=== PATIENT | male | born 1960 | race Caucasian/White ===

== ENCOUNTER 2016-12-18 08:04 | Day surgery (SDC) | payer MEDICARE, OTHER ==
[~2016-12-18 08:04] MED LIST: LACTATED RINGERS 1,000 ML IV SCH
[2016-12-18] MEDS ORDERED: PROPOFOL 20 ML IV ONE (08:40)
[2016-12-18] MEDS ORDERED: KETAMINE HCL UD SYRINGE 100 MG/2 ML IV ONE (08:41)
--- NOTE | 2016-12-25 14:20 | SURGPATH ---
[facility] [address] [place] [id number] Patient Name: ARTUR JANE MR#: [id number] : 1960 Gender: M Specimen #: [id number] Collected: 12/18/2016 Received: 12/19/2016 Reported: 12/22/2016 Submitting Phys: GUI NÚÑEZ Copy To Phys: [facility] CHEMO [facility] Clinical History / Pre-Operative Diagnosis: SCREENING Specimen Source / Surgical Procedure Performed: SIGMOID COLON POLYP AT 30 CM Interpretation: SIGMOID COLON, POLYP AT 30 CM, BIOPSY: - TUBULOVILLOUS ADENOMA Electronically Signed Out Zeeshan Bettencourt M.D. Gross Description: The specimen is received in a formalin filled container labeled with the patient's name and "sigmoid colon polyp at 30 cm". A polypoid red-krishnamurthy biopsy is 0.7 x 0.5 x 0.5 cm. Bisected. Totally embedded in one cassette. Raymond Davis, P.ARand Microscopic Description: Levels reveal a bisected polyp surfaced by tubular and villous structures with adenomatous features. High-grade dysplasia and malignancy are not present. 1: 13984 D12.5
== END 2016-12-18 09:37 | disposition home or self-care (01) ==
LOC: SDC 08:04
PROVIDERS: ATTEND Internal Medicine Gastroenterology
DX: Z12.11 Encounter for screening for malignant neoplasm of colon (principal); D12.5 Benign neoplasm of sigmoid colon; E78.00 Pure hypercholesterolemia, unspecified; I10 Essential (primary) hypertension